=== PATIENT | female | born 1965 | race Asian ===

== ENCOUNTER 2016-09-04 00:26 | Observation (INO) | payer OTHER ==
[~2016-09-04] VITALS: Ht 175.3 cm; Wt 101.2 kg
[2016-09-04] VITALS (8 sets, daily range): BP systolic 126–176; BP diastolic 80–118; TEMP 97.7–98.8; Ht 175.3 cm; Wt 101.2 kg
[~2016-09-04 00:26] MED LIST: CLONIDINE0.1 MG PO; GABA300C2 PO; HYZAAR1 TA1 PO; METOPROLOL25 M1 OR; OMEP20CA PO; ROBAXIN500 MG PO; WAL-ITIN1 TAB OR; ZANTAC300 MG PO
[2016-09-04 01:49] LABS: PLATELET COUNT 203 K/uL (152-353)
[2016-09-04 02:20] LABS: PARTIAL THROMBOPLASTIN TIME 22.5 SECONDS (24.5-33.6)
[2016-09-04 02:29] LABS: POTASSIUM 2.8 mmol/L (3.6-5.2); SODIUM 134 mmol/L (136-145)
[2016-09-04] MEDS ORDERED: FEXOFENADINE H180 MG PO (03:23)
[2016-09-04] MEDS ORDERED: MELOXICAM7.5 MG OR (03:24)
[2016-09-04] MEDS ORDERED: PRED10TA27 PO (03:25)
[2016-09-04] MEDS ORDERED: PROM25TA52 PO (03:26)
[2016-09-04] MEDS ORDERED: TRAMADOL HCL100 M1 OR (03:26)
[2016-09-04] MEDS ORDERED: DULO30CA OR (06:38)
[2016-09-04 09:35] LABS: PLATELET COUNT 200 K/uL (152-353)
[2016-09-04 10:43] LABS: POTASSIUM 2.9 mmol/L (3.6-5.2); SODIUM 134 mmol/L (136-145)
== END 2016-09-04 16:30 | disposition home or self-care (01) ==
LOC: ED 00:26 → MED/SURG 02:15
PROVIDERS: Internal Medicine; ADMIT Emergency Medicine
DX: R07.89 Other chest pain (principal); E87.6 Hypokalemia; N64.4 Mastodynia; I10 Essential (primary) hypertension; M79.7 Fibromyalgia; M15.8 Other polyosteoarthritis; K21.9 Gastro-esophageal reflux disease without esophagitis; R06.02 Shortness of breath
CPT/HCPCS: 36415; 80053; 82550; 83735; 83880; 84484; 85027; 85610; 85730; 93005; 94760; 96372; 96374; 96375; 99220; 99284; G0378; J1650; J2270; J2405; J3480

== ENCOUNTER 2016-10-01 09:04 | Outpatient (CLI) | payer OTHER ==
[~2016-10-01 09:04] MED LIST changes: +DULO30CA OR; +FEXOFENADINE H180 MG PO; +MELOXICAM7.5 MG OR; +PRED10TA27 PO; +PROM25TA52 PO; +TRAMADOL HCL100 M1 OR
[2016-10-01 10:57] LABS: POTASSIUM 3.7 mmol/L (3.6-5.2); SODIUM 137 mmol/L (136-145)
[2016-10-01 12:35] LABS: PLATELET COUNT 206 K/uL (152-353)
== END 2016-10-01 22:49 | disposition home or self-care (01) ==
LOC: LABW 09:04
PROVIDERS: Podiatrist
DX: Z01.810 Encounter for preprocedural cardiovascular examination (principal); Z01.811 Encounter for preprocedural respiratory examination; Z01.812 Encounter for preprocedural laboratory examination
CPT/HCPCS: 36415; 80053; 84702; 85002; 85027; 93005

== ENCOUNTER 2018-01-21 11:57 | Outpatient (CLI) | payer OTHER | END 2018-01-21 20:44 | disposition home or self-care (01) | LOC: RAD 11:57 | DX: R06.09 Other forms of dyspnea (principal) ==

== ENCOUNTER 2018-03-01 08:04 | Outpatient (CLI) | payer OTHER | END 2018-03-01 21:58 | disposition home or self-care (01) | LOC: RESP 08:04 | DX: R06.09 Other forms of dyspnea (principal) ==

== ENCOUNTER 2018-06-01 08:44 | Outpatient (CLI) | payer OTHER | END 2018-06-01 21:19 | disposition home or self-care (01) | LOC: RESP 08:44 | DX: R06.09 Other forms of dyspnea (principal); R53.83 Other fatigue | CPT/HCPCS: 93306 ==

== ENCOUNTER 2018-08-30 11:22 | Emergency (ER) | payer OTHER ==
[~2018-08-30] VITALS: Ht 175.3 cm; Wt 101.2 kg
[2018-08-30 14:09] VITALS: BP 158/94; TEMP 98.4
== END 2018-08-30 14:35 | disposition home or self-care (01) ==
LOC: ED 11:22
DX: S16.1XXA Strain of muscle, fascia and tendon at neck level, initial encounter (principal); S29.012A Strain of muscle and tendon of back wall of thorax, initial encounter; V49.40XA Driver injured in collision with unspecified motor vehicles in traffic accident, initial encounter; Y92.89 Other specified places as the place of occurrence of the external cause
CPT/HCPCS: 96372; 99283; J1885

== ENCOUNTER 2018-11-01 10:18 | Outpatient (CLI) | payer OTHER ==
[2018-11-01 10:33] LABS: PLATELET COUNT 195 K/uL (152-353)
[2018-11-01 10:49] LABS: POTASSIUM 3.6 mmol/L (3.6-5.2)
== END 2018-11-01 23:27 | disposition home or self-care (01) ==
LOC: LABW 10:18
PROVIDERS: Nurse Practitioner Family
DX: Z79.899 Other long term (current) drug therapy (principal)
CPT/HCPCS: 36415; 80053; 85027

== ENCOUNTER 2019-03-15 08:01 | Outpatient (CLI) | payer OTHER ==
[~2019-03-15] VITALS: Ht 175.3 cm; Wt 101.2 kg
== END 2019-03-15 20:56 | disposition home or self-care (01) ==
LOC: NM 08:01
DX: R07.89 Other chest pain (principal); I10 Essential (primary) hypertension
CPT/HCPCS: A9500; J2785

== ENCOUNTER 2019-07-07 10:16 | Outpatient (CLI) | payer OTHER | END 2019-07-07 19:52 | disposition home or self-care (01) | LOC: CT 10:16 | DX: R93.1 Abnormal findings on diagnostic imaging of heart and coronary circulation (principal) ==

== ENCOUNTER 2019-07-07 11:14 | Emergency (ER) | payer OTHER ==
[~2019-07-07] VITALS: Ht 175.3 cm; Wt 101.2 kg
[2019-07-07 11:30] VITALS: TEMP 97.5
[2019-07-07 12:22] LABS: PLATELET COUNT 227 K/uL (152-353)
[2019-07-07 12:29] LABS: POTASSIUM 3.6 mmol/L (3.6-5.2); SODIUM 142 mmol/L (136-145)
[2019-07-07 12:41] LABS: PARTIAL THROMBOPLASTIN TIME 22.1 SECONDS (24.5-33.6)
[2019-07-07 13:40] VITALS: BP 184/91
== END 2019-07-07 13:45 | disposition home or self-care (01) ==
LOC: ED 11:14
PROVIDERS: Student in an Organized Health Care Education/Training Program
DX: J40 Bronchitis, not specified as acute or chronic (principal); R05 Cough; R06.09 Other forms of dyspnea
CPT/HCPCS: 80048; 83735; 83880; 84484; 85027; 85610; 85730; 87502; 93005; 99283

== ENCOUNTER 2020-01-17 10:27 | Outpatient (CLI) | payer OTHER | END 2020-01-17 20:06 | disposition home or self-care (01) | LOC: RAD 10:27 | DX: M54.2 Cervicalgia (principal); M54.5 Low back pain ==

== ENCOUNTER 2020-05-23 10:58 | Outpatient (CLI) | payer OTHER | END 2020-05-23 20:11 | disposition home or self-care (01) | LOC: RAD 10:58 | DX: M17.0 Bilateral primary osteoarthritis of knee (principal); M79.641 Pain in right hand; M79.642 Pain in left hand; M79.671 Pain in right foot; M79.672 Pain in left foot ==

== ENCOUNTER 2020-05-29 07:52 | Outpatient (CLI) | payer OTHER | END 2020-05-29 20:07 | disposition home or self-care (01) | LOC: RESP 07:52 | DX: M35.01 Sjogren syndrome with keratoconjunctivitis (principal); Z79.899 Other long term (current) drug therapy ==

== ENCOUNTER 2021-02-13 09:19 | Outpatient (CLI) | payer OTHER | END 2021-02-13 21:28 | disposition home or self-care (01) | LOC: RAD 09:19 | PROVIDERS: ATTEND Nurse Practitioner Family | DX: M35.01 Sjogren syndrome with keratoconjunctivitis (principal); R06.02 Shortness of breath; R93.1 Abnormal findings on diagnostic imaging of heart and coronary circulation; Z79.899 Other long term (current) drug therapy ==

== ENCOUNTER 2021-11-14 11:55 | Outpatient (CLI) | payer OTHER | END 2021-11-14 21:27 | disposition home or self-care (01) | LOC: RAD 11:55 | PROVIDERS: ATTEND Internal Medicine Sleep Medicine | DX: R06.00 Dyspnea, unspecified (principal) ==

== ENCOUNTER 2022-01-30 10:10 | Outpatient (CLI) | payer OTHER | END 2022-01-30 20:35 | disposition home or self-care (01) | LOC: RESP 10:10 | PROVIDERS: ATTEND Nurse Practitioner Family | DX: R06.00 Dyspnea, unspecified (principal) ==

== ENCOUNTER 2022-02-28 09:07 | Outpatient (CLI) | payer OTHER | END 2022-02-28 21:35 | disposition home or self-care (01) | LOC: RAD 09:07 | PROVIDERS: ATTEND Nurse Practitioner Family | DX: M25.511 Pain in right shoulder (principal); R06.02 Shortness of breath; R22.31 Localized swelling, mass and lump, right upper limb; Z79.899 Other long term (current) drug therapy ==

== ENCOUNTER 2022-03-10 09:50 | Outpatient (CLI) | payer OTHER | END 2022-03-10 18:57 | disposition home or self-care (01) | LOC: US 09:50 | PROVIDERS: ATTEND Nurse Practitioner Family | DX: R22.31 Localized swelling, mass and lump, right upper limb (principal) ==

== ENCOUNTER 2022-04-22 08:37 | Outpatient (CLI) | payer OTHER ==
[~2022-04-22] VITALS: Ht 175.3 cm; Wt 103.0 kg
== END 2022-04-22 20:19 | disposition home or self-care (01) ==
LOC: NM 08:37
PROVIDERS: ATTEND Nurse Practitioner
DX: R01.2 Other cardiac sounds (principal); I51.7 Cardiomegaly; I47.1 Supraventricular tachycardia; R06.09 Other forms of dyspnea
CPT/HCPCS: A9500; J2785

== ENCOUNTER → 2022-05-06 | Outpatient (CLI) | payer OTHER | LOC: RAD 10:33 | PROVIDERS: ATTEND Nurse Practitioner Family | DX: M25.551 Pain in right hip (principal); M35.05 Sjogren syndrome with inflammatory arthritis; Z79.891 Long term (current) use of opiate analgesic ==

== ENCOUNTER 2022-05-19 11:21 | Outpatient (CLI) | payer OTHER ==
[2022-05-19 11:48] LABS: PLATELET COUNT 200 K/uL (152-353)
== END 2022-05-19 20:51 | disposition home or self-care (01) ==
LOC: LABW 11:21
PROVIDERS: ATTEND Specialist
DX: R01.2 Other cardiac sounds (principal); R07.89 Other chest pain; R06.09 Other forms of dyspnea; I47.1 Supraventricular tachycardia; I10 Essential (primary) hypertension
CPT/HCPCS: 36415; 80048; 85027

== ENCOUNTER 2022-09-25 12:22 | Outpatient (CLI) | payer OTHER ==
[2022-09-25 12:40] LABS: PLATELET COUNT 211 K/uL (152-353)
== END 2022-09-25 22:28 | disposition home or self-care (01) ==
LOC: LABW 12:22
PROVIDERS: ATTEND Nurse Practitioner Family
DX: G25.81 Restless legs syndrome (principal); R79.89 Other specified abnormal findings of blood chemistry
CPT/HCPCS: 36415; 82728; 83540; 83550; 85027

== ENCOUNTER 2022-12-30 14:09 | Outpatient (CLI) | payer OTHER | END 2022-12-30 22:00 | LOC: RAD 14:09 | PROVIDERS: ATTEND Nurse Practitioner Family | DX: M17.0 Bilateral primary osteoarthritis of knee (principal); M35.05 Sjogren syndrome with inflammatory arthritis; M47.816 Spondylosis without myelopathy or radiculopathy, lumbar region; M54.59 Other low back pain; Z79.899 Other long term (current) drug therapy ==

== ENCOUNTER 2023-01-27 10:23 | Outpatient (CLI) | payer OTHER | END 2023-01-27 20:33 | disposition home or self-care (01) | LOC: RAD 10:23 | PROVIDERS: ATTEND Nurse Practitioner Family | DX: M35.05 Sjogren syndrome with inflammatory arthritis (principal); M47.812 Spondylosis without myelopathy or radiculopathy, cervical region; M54.59 Other low back pain; R06.02 Shortness of breath; Z79.891 Long term (current) use of opiate analgesic ==

== ENCOUNTER 2023-02-06 10:08 | Outpatient (CLI) | payer OTHER | END 2023-02-06 19:05 | disposition home or self-care (01) | LOC: LABW 10:08 | PROVIDERS: ATTEND Nurse Practitioner Family | DX: Z79.899 Other long term (current) drug therapy (principal) | CPT/HCPCS: 81002; 85652; 86140; 87088 ==

== ENCOUNTER 2023-02-09 09:20 | Outpatient (CLI) | payer OTHER | END 2023-02-09 20:47 | disposition home or self-care (01) | LOC: RESP 09:20 | PROVIDERS: ATTEND Nurse Practitioner Family | DX: M35.05 Sjogren syndrome with inflammatory arthritis (principal); M47.812 Spondylosis without myelopathy or radiculopathy, cervical region; M47.816 Spondylosis without myelopathy or radiculopathy, lumbar region; M54.59 Other low back pain; Z79.891 Long term (current) use of opiate analgesic; Z79.899 Other long term (current) drug therapy ==

== ENCOUNTER 2023-02-11 09:33 | Day surgery (SDC) | payer OTHER ==
[~2023-02-11] VITALS: Ht 165.1 cm; Wt 68.0 kg
== END 2023-02-11 12:25 | disposition home or self-care (01) ==
LOC: OR 09:33
PROVIDERS: ATTEND Internal Medicine Gastroenterology
PROC: 0DJD8ZZ Inspection of Lower Intestinal Tract, Via Natural or Artificial Opening Endoscopic (ICD-10-PCS; principal; 2023-02-11)
DX: Z12.11 Encounter for screening for malignant neoplasm of colon (principal); K57.32 Diverticulitis of large intestine without perforation or abscess without bleeding; K64.0 First degree hemorrhoids
CPT/HCPCS: J2704; J7120

== ENCOUNTER 2023-02-16 10:07 | Outpatient (CLI) | payer OTHER | END 2023-02-16 19:10 | disposition home or self-care (01) | LOC: MRI 10:07 | PROVIDERS: ATTEND Nurse Practitioner Family | DX: M47.816 Spondylosis without myelopathy or radiculopathy, lumbar region (principal) ==